=== PATIENT | male | born 1980 | race Caucasian/White ===

== ENCOUNTER 2017-10-21 10:18 | Emergency (ER) | payer OTHER ==
[2017-10-21 10:39] VITALS: BP 132/74; BMI 39.5
--- NOTE | 2017-10-21 10:45 | DR.LACERAT ---
HPI - Time Seen Time seen: 10:50 - Primary Care Physician Primary Care Physician: SHEILA BALLESTEROS - HPI Comment HPI Comment: PATIENT CUT MIDDLE JOINTS ON 2ND, 3RD AND 4TH FINGERS ON RT AND ABRASION ON 2ND FINGER ON LT HAND. CUT IT ON SOFA. TD NOT UTD. - Complaints Chief Complaint Doctors Comments: FINGER LACERATION Chief Complaint:: PT C/O THROWING OUT A OLD SOFA AND CUTTING HIS RIGHT MIDDLE FINGER AND SOME SMALL ABRASIONS NOTED TO PTS OTHER FINGERS,,, Self Treatment fo Chief Complaint: PRESSURE BEING HELD, BLEEDING CONTROLLED - Reviewed Nurses Notes Reviewed: Yes - Source History Provided: Patient - Mode of Arrival Mode of Arrival: Ambulatory - Timing Onset of Chief Complaint: 10/20/17 - Context Mechanism: Metal Tetanus Vaccination: No - Severity Pain Severity: Moderate Bleeding:: Controlled - Associated Signs and Symptoms Associated Signs and Symptoms: None PMH - PMH Past Medical History: No Past Surgical History: Yes Past Surgical History Comment: FEET, - Family History History of Family Medical Conditions: No - Social History Does patient currently use any type of tobacco product: No Type of Tobacco Use: None Does any household member use tobacco: No Alcohol Use: None Do you use any recreational Drugs:: No Lives With: Family Lives Where: Home - infectious screening In the last 2 months have you had wt loss of >10#?: NO Have you had fever, night sweats or hemotysis?: No Have you traveled outside the country in the last 6 months?: No Isolation: Standard ROS - Review of Systems Constitutional: No Symptoms Reported Eyes: No Symptoms Reported ENTM: No Symptoms Reported Respiratoy: No Symptoms Reported Cardiovascular: No Symptoms Reported Gastrointestinal/Abdominal: No Symptoms Reported Genitourinary: No Symptoms Reported Neurological: No Symptoms Reported Musculoskeletal: No Symptoms Reported Integumentary: Wound (LAC PIP JOINT POSTERIOR ASPECT 2ND, 3RD AND 4TH FINGERS.) , Other (ABRASION LT HAND.) Hematologic/Lymphatic: No Symptoms Reported Endocrine: No Symptoms Reported All Other Systems: Reviewed and Negative PE - Vital Signs Vitals: Temperature 96.7 F Pulse Rate 84 Respiratory Rate 18 Blood Pressure 132/74 O2 Sat by Pulse Oximetry 95 - General Limitations: No Limitations General Appearance: Alert - Head Head Exam: Normal Inspection - Eyes Eye exam: Normal Appearance - ENT ENT Exam: Normal External Ear Exam - Neck Neck Exam: Normal Inspection - Chest Chest Inspection: Symmetric Chest Wall Rise - Respiratory Respiratory Exam: Normal Lung Sounds Bilat Respiratory Exam: Bilateral Clear to Auscultation - Cardiovascular Cardiovascular Exam: Regular Rate, Normal Rhythm, Normal Heart Sounds - Abdominal Exam Abdominal Exam: Normal Bowel Sounds, Soft. negative: Tenderness - Extremities Extremities Exam: Tenderness (LAC FINGERS RT HAND) - Back Back Exam: Normal Inspection - Neurologic Neurological Exam: Alert, Oriented X3 - Psychiatric Psychiatric Exam: Normal Affect, Normal Mood - Skin Skin Exam: Erythema Type of Lesion: Laceration (RT PIP JOINTS 1CM 2ND FINGER, 3CM 3RD FINGER AND 2CM 4TH FINGER.), Abrasion Distribution: LUE, RUE [facility] - Differential Diagnosis Differential Diagnosis: Abrasion, Laceration Course - Treatment Treatment: SEE ORDERS. - Education/Counseling Education/Counseling: Patient, Education Educated On: Diagnosis, Needs for Follow Up Procedures - Laceration/Wound Repair Right Hand Wound Length (cm): 3 (ALSO 1 AND 2 CM) Wound's Depth, Shape: Linear Wound Explored: clean Anesthesia: 1% Lidocaine Volume Anesthetic (ccs): 5 Wound Debrided: minimal Wound Repaired With: sutures Suture Size/Type: 4:0, Ethilion Number of Sutures: 13 Layer Closure?: No Sterile Dressing Applied?: Yes Splint Applied?: No Sling Applied?: No - Diagnosis Discharge Problem: Finger laceration Qualifiers: Encounter type: initial encounter Finger: middle finger Damage to nail status: without damage Foreign body presence: without foreign body Laterality: right Qualified Code(s): S61.212A - Laceration without foreign body of right middle finger without damage to nail, initial encounter Abrasion of finger of left hand Qualifiers: Encounter type: initial encounter Qualified Code(s): S60.419A - Abrasion of unspecified finger, initial encounter - Discharge Plan Disposition: HOME, SELF-CARE Condition: Stable Prescriptions: Cephalexin [KEFLEX CAP 500 MG *] 500 mg PO TID #21 cap Ibuprofen [MOTRIN TAB 800 MG *] 800 mg PO Q8H PRN #20 tab PRN Reason: Pain/Inflammation Tramadol HCl 50 mg PO Q8H #15 tablet - Follow ups/Referrals Follow ups/Referrals: FAVIAN GARCIA [Primary Care Provider] - 3 days - Instructions Instructions: Laceration Care, Adult, [id number] Additional Instructions: SUTURE OUT IN 10 DAYS. RETURN TO ED IF WORSE.
[2017-10-21] MEDS ORDERED: XYLOCAINE 1 % (PLAIN) ONE (10:51)
[2017-10-21] MEDS ORDERED: ADACEL TDaP IM ONE ×2 (10:52→10:59)
== END 2017-10-21 11:37 | disposition home or self-care (01) ==
LOC: ER 10:38
PROC: 0XQJXZZ Repair Right Hand, External Approach (ICD-10-PCS; principal; 2017-10-21)
DX: S61.212A Laceration without foreign body of right middle finger without damage to nail, initial encounter (principal); S60.419A Abrasion of unspecified finger, initial encounter; W45.8XXA Other foreign body or object entering through skin, initial encounter; Y92.9 Unspecified place or not applicable
CPT/HCPCS: 12002; 90471; 99282; J2001

== ENCOUNTER 2017-11-05 09:52 | Emergency (ER) | payer OTHER ==
[2017-11-05 09:53] VITALS: BP 132/74
[2017-11-05 09:56] VITALS: BMI 39.5
--- NOTE | 2017-11-05 10:28 | DR.GENAD ---
HPI - PCP Primary Care Physician: JOSE - HPI Comment HPI Comment: GETTING WORSE. REPORTS GREEN SPUTUM. NASAL SECREATION ALSO GREEN. - Complaint/Symptoms Chief Complaint Doctors Comments: COUGH, COLD, CONGESTION AND FEVER TIMES 4 DAYS. Chief Complaint:: PT C/O CHEST CONGESTION, CHEST PAIN FROM COUGHING, COUGHING UP THICK GREEN SPUTUM. PT STATES HE HAS BEEN RUNNING FEVER ALSO. PT STATES HIS SYMPTOMS HAS BEEN GOING ON SINCE MONDAY. - Nurses notes reviewed Nurses Notes Review: Yes - Source History Provided: Patient - Mode of Arrival Mode of Arrival: Ambulatory - Timing Onset of Chief Complaint: 11/01/17 Came on: Suddenly - Duration Duration: Constant Duration: Days - Severity Severity: Moderate PMH - PMH Past Medical History: No Past Surgical History: Yes Past Surgical History Comment: FOOT SURGERY - Family History History of Family Medical Conditions: No - Social History Does any household member use tobacco: No Alcohol Use: None Do you use any recreational Drugs:: No Lives With: Family Lives Where: Home - infectious screening In the last 2 months have you had wt loss of >10#?: NO Have you had fever, night sweats or hemotysis?: No Have you traveled outside the country in the last 6 months?: No Isolation: Standard ROS - Review of Systems Constitutional: No Symptoms Reported Eyes: No Symptoms Reported ENTM: Nose Congestion, Throat Pain. negative: Ear Pain, Ear Discharge Respiratoy: Productive Cough, Short of Breath. negative: Wheezing, Hemoptysis Cardiovascular: Chest Pain Gastrointestinal/Abdominal: Nausea Genitourinary: negative: Dysuria, Frequency, Hematuria Neurological: Headache, Weakness, Dizziness Musculoskeletal: Muscle Pain Integumentary: No Symptoms Reported Hematologic/Lymphatic: No Symptoms Reported Endocrine: No Symptoms Reported All Other Systems: Reviewed and Negative PE - Vital Signs Vitals: Temperature 97.5 F Pulse Rate 71 Respiratory Rate 20 Blood Pressure 132/74 O2 Sat by Pulse Oximetry 96 - General Limitations: No Limitations General Appearance: Alert - Head Head Exam: Normal Inspection - Eyes Eye exam: Normal Appearance - ENT ENT Exam: Normal External Ear Exam External Ear Exam: Normal External Inspection TM/Canal Exam: Bilateral Bulging Nose Exam: Normal Nose Exam Mouth Exam: Normal Inspection Throat Exam: Tonsillar Erythema. negative: Tonsillomegaly, Tonsillar Exudate - Neck Neck Exam: Trachea Midline. negative: Tenderness, Meningismus, Lymphadenopathy - Chest Chest Inspection: Normal Inspection, Symmetric Chest Wall Rise - Respiratory Respiratory Exam: Normal Lung Sounds Bilat, Chest Wall Tenderness Respiratory Exam: Bilateral Rhonchi, Lower Crackles - Cardiovascular Cardiovascular Exam: Regular Rate, Normal Rhythm - Abdominal Exam Abdominal Exam: Normal Bowel Sounds, Soft - Extremities Extremities Exam: Normal Inspection - Back Back Exam: Normal Inspection - Neurologic Neurological Exam: Alert, Oriented X3 - Psychiatric Psychiatric Exam: Normal Affect, Normal Mood - Skin Skin Exam: Normal Color MDM - Differential Diagnosis Differential Diagnosis: INFLUENZA, BRONCHITIS, PNEUMONIA, SORE THROAT, SINUSITIS Course - Treatment Treatment: SEE ORDERS. - Education/Counseling Education/Counseling: Patient, Education Educated On: Diagnosis, Needs for Follow Up ROR - Labs Reviewed Laboratory Results Reviewed?: Yes Laboratory: Influenza Type A (PCR) Negative (NEGATIVE) 11/05/17 10:31 Influenza Type B (PCR) Positive (NEGATIVE) A 11/05/17 10:31 S. pyogenes (TEM-PCR) Not detected (NOT DETECT) 11/05/17 10:31 - XRAY XRAY Interpreted by: Radiologist XRAY Findings: REPORT DISCUSS WITH PATIENT. - Diagnosis Discharge Problem: Influenza Acute bronchitis Qualifiers: Bronchitis organism: unspecified organism Qualified Code(s): J20.9 - Acute bronchitis, unspecified Sinusitis Qualifiers: Sinusitis location: unspecified location Chronicity: acute Recurrence: not specified as recurrent Qualified Code(s): J01.90 - Acute sinusitis, unspecified - Discharge Plan Disposition: 01 HOME, SELF-CARE Condition: Stable Prescriptions: Amoxicillin [Amoxil 875 mg] 875 mg PO Q12H #20 tab Oseltamivir Phosphate [Tamiflu] 75 mg PO BID #10 cap Promethazine W/Codeine [PHENERGAN W/CODEINE 6.25mg/10mg (5mL) *] 10 ml PO Q6H PRN #120 ml PRN Reason: Cough - Follow ups/Referrals Follow ups/Referrals: FAVIAN GARCIA [Primary Care Provider] - 3 days - Instructions Instructions: Influenza, Adult, [id number], Sinusitis, Adult, [id number]-[id number], Acute Bronchitis, [id number] Additional Instructions: return to ed if worse.
--- NOTE | 2017-11-05 13:39 | RAD ---
Examination: Chest, PA and lateral views History: SOB Findings: Normal heart size with essentially clear lungs and pleural spaces. Pulmonary volumes are lo w, possibly related to patient habitus. There is no evidence for hilar enlargement or pleural effusio n. Impression: No acute or significant chest findings. Reported By:
== END 2017-11-05 12:05 | disposition home or self-care (01) ==
LOC: ER 09:57
DX: J20.9 Acute bronchitis, unspecified (principal); J10.1 Influenza due to other identified influenza virus with other respiratory manifestations; J01.80 Other acute sinusitis
CPT/HCPCS: 71046; 87502; 87651; 99282

== ENCOUNTER → 2018-02-01 | Outpatient (CLI) | payer OTHER ==
--- NOTE | 2018-02-01 12:31 | RAD ---
Indication: Cough Exam: PA and lateral Comparison: 11/05/2017 Findings: The heart is normal. The pulmonary vessels are normal. The lungs are hypoinflated. No obvio us consolidation or effusion is seen. The bones are intact. Impression: Stable chest with no acute abnormality seen. Reported By:
== END ==
LOC: RAD 12:05
PROVIDERS: ATTEND Internal Medicine
DX: R07.9 Chest pain, unspecified (principal)
CPT/HCPCS: 71046

== ENCOUNTER 2022-02-03 16:45 | Observation (INO) ==
[2022-02-03] MEDS ORDERED: OFIRMEV IV 1000 MG VIAL 1,000 MG/100 ML VIAL IV PRN (17:45)
[2022-02-03] MEDS ORDERED: ZOFRAN INJ 4 MG VIAL IVP PRN (17:46)
[2022-02-03] MEDS ORDERED: MORPHINE SULFATE INJ 2 MG INJ IVP PRN (17:46)
--- NOTE | 2022-02-03 17:53 | DR.H&P ---
H&P - History & Physical for Day of: H&P Date: 02/03/22 - Chief Complaint Chief Complaint: ABDOMINAL PAIN, FEVER - History of Present Illness History of Present Illness: PT IS 41 WM DIRECT ADMIT FROM DR MENDIOLA OFFICE WITH CO FEVER AND ABDOMINAL PAIN ONSET 2 DAYS AGO. PT REPORTS GRADUALLY WORSENED WITH BLOOD IN HIS URINE. PT NAUSEA AND VOMITING. PT CO SEVERE NAUSEA WITH HE STANDS OR MOVES. PT DENIES ANY CONSITPATION OR DIARRHEA. PT HAD UA IN OFFICE WITH LARGE BLOOD, + LARGE LEUKOCYTES AND NITRITE. PT HAD 2 NEGATIVE RAPID COVID TESTS AND DENIES ANY UPPER RESPIRATORY SYMPTOMS. PT HAS PMH OF HTN, CONTROLLED ON CURRENT MEDICATION. PT ADMITTED FOR TREATMENT OF ACUTE ILLNESSE, RO ACUTE SURGICAL ABDOMEN. - Past Medical History Past Medical History: Hypertension - Social History Does patient currently use any type of tobacco product: No Have you used tobacco products in the last 12 months: No Type of Tobacco Use: None Does any household member use tobacco: No Alcohol Use: None Drug Use: None Risks, benefits, and alternatives of opioids discussed: No - Medications Home Medications: No Known Drug Allergies Allergy (Verified 10/21/17 10:22) - Review of Systems Constitutional: Fever, Chills, Sweats, Weakness, Malaise Eyes: No Symptoms Reported ENT: No Symptoms Reported Respiratory: No Symptoms Reported Cardiovascular: No Symptoms Reported Gastrointestinal: Nausea, Vomiting, Abdominal Pain Genitourinary: Hematuria Musculoskeletal: No Symptoms Reported Skin: No Symptoms Reported Neurological: No Symptoms Reported - Physical Exam Vital Signs: Blood Pressure 132/74 Oriented: Normal Eyes: Normal Ear: Normal Nose: Normal Throat: Normal Respiratory: RLL Diminished, LLL Diminished Cardiovascular: Tachycardia : Normal Auscultation: Bowel Sounds: Decreased Tenderness: LLQ, Periumbilical, Suprapubic, Severe Skin: Decreased Turgur Musculoskeletal: Back:Lumbar Psychiatric: Normal Mood Description: Calm Speech Pattern: Clear, Appropriate - Assessment/Plan (1) UTI (urinary tract infection) Status: Acute Plan: ADMIT, BLOOD AND URINE CULTURE. IV HYDRATION, I&OS. NPO. PAIN AND NAUSEA CONTROL. IV ATBX THERAPY, BP CONTROL. CT ABD/PELVIS WITH CONTRAST. SURGICAL CONSULT PRN (2) Acute generalized abdominal pain with fever Status: Acute (3) Fever Status: Acute (4) Dehydration Status: Acute (5) Hematuria Status: Acute - Allergies Allergies/Adverse Reactions: Allergies Allergy/AdvReac Type Severity Reaction Status Date / Time No Known Drug Allergies Allergy Verified 10/21/17 10:22
[2022-02-03 18:13] LABS: BASOPHILS % (AUTO) 0.4 % (0.2-1.0); EOSINOPHILS # (AUTO) 0.1 x10^3/uL (0.0-0.2); EOSINOPHILS % (AUTO) 2.9 % (0.9-2.9); HEMATOCRIT 43.5 % (42.0-54.0); HEMOGLOBIN 15.2 g/dL (13.5-18.0); LYMPHOCYTES % (AUTO) 20.8 % (21.0-51.0); MEAN CORPUSCULAR HEMOGLOBIN 30.9 pg (27.0-34.0); MEAN CORPUSCULAR VOLUME 88.5 fL (80.0-100.0); MEAN PLATELET VOLUME 8.3 fL (7.4-11.0); MONOCYTES # (AUTO) 0.5 x10^3/uL (0.3-0.8); MONOCYTES % (AUTO) 10.4 % (0.0-13.0); NEUTROPHILS % (AUTO) 65.5 % (42.0-75.0); RED BLOOD COUNT 4.91 X10^6/uL (4.7-6.0); RED CELL DISTRIBUTION WIDTH 13.5 % (11.6-16.5); WHITE BLOOD COUNT 4.6 X10^3/uL (3.6-10.0)
[2022-02-03 18:24] LABS: ALANINE AMINOTRANSFERASE 48 Units/L (12-78); ALBUMIN 3.6 g/dL (3.4-5.0); ALKALINE PHOSPHATASE 73 Units/L (46-116); ASPARTATE AMINO TRANSFERASE 27 Units/L (15-37); BLOOD UREA NITROGEN 15 mg/dL (7-18); CALCIUM 8.8 mg/dL (8.5-10.1); CHLORIDE 103 mmol/L (98-107); CREATININE 1.15 mg/dL (0.70-1.30); SODIUM 137 mmol/L (136-145); TOTAL PROTEIN 7.4 g/dL (6.4-8.2); eGFR NON BLACK RACES > 60 (>60)
[2022-02-03] MEDS: PROTONIX INJ 40 MG VIAL IVP SCH (18:45)
[2022-02-03] MEDS: NS 1,000 ML IV 1,000 ML IV SCH (18:45)
[2022-02-03 19:06] LABS: BILIRUBIN,URINE NEGATIVE (NEGATIVE); BLOOD/HEMOGLOBIN,URINE 2+ (NEGATIVE); GLUCOSE, URINE NEGATIVE (NEGATIVE); KETONES,URINE NEGATIVE (NEGATIVE); LEUKOCYTE ESTERASE ,URINE 3+ (NEGATIVE); NITRITES,URINE POSITIVE (NEGATIVE); PROTEIN,URINE 2+ (NEGATIVE); UROBILINOGEN,URINE NORMAL (NORMAL)
[2022-02-03 19:32] LABS: APPEARANCE,URINE CLOUDY (CLEAR); BACTERIA,URINE 2+ /HPF (NEGATIVE); COLOR,URINE YELLOW (YELLOW); SQUAMOUS EPITHELIAL CELL,UR FEW /HPF (NEGATIVE)
[2022-02-03] MEDS: ZOSYN VIAL 3.375 GRAMS 3.375 G in NS 100 ML IV 100 ML IV SCH (21:55)
[2022-02-04] MEDS: NS 1,000 ML IV 1,000 ML IV SCH ×3 (02:57→11:31)
[2022-02-04 05:58] LABS: BASOPHILS % (AUTO) 0.5 % (0.2-1.0); EOSINOPHILS # (AUTO) 0.2 x10^3/uL (0.0-0.2); EOSINOPHILS % (AUTO) 4.6 % (0.9-2.9); HEMOGLOBIN 13.4 g/dL (13.5-18.0); LYMPHOCYTES # (AUTO) 1.4 X10^3/uL (1.3-2.9); LYMPHOCYTES % (AUTO) 30.1 % (21.0-51.0); MEAN CORPUSCULAR HEMOGLOBIN 30.2 pg (27.0-34.0); MEAN CORPUSCULAR HGB CONC 34.4 g/dL (33.0-35.0); MEAN CORPUSCULAR VOLUME 87.9 fL (80.0-100.0); MEAN PLATELET VOLUME 8.2 fL (7.4-11.0); MONOCYTES # (AUTO) 0.7 x10^3/uL (0.3-0.8); NEUTROPHILS # (AUTO) 2.3 x10^3/uL (2.2-4.8); NEUTROPHILS % (AUTO) 49.8 % (42.0-75.0); RED BLOOD COUNT 4.44 X10^6/uL (4.7-6.0); RED CELL DISTRIBUTION WIDTH 13.6 % (11.6-16.5); WHITE BLOOD COUNT 4.6 X10^3/uL (3.6-10.0)
[2022-02-04] MEDS: ZOSYN VIAL 3.375 GRAMS 3.375 G in NS 100 ML IV 100 ML IV SCH (06:16)
[2022-02-04 06:17] LABS: ALANINE AMINOTRANSFERASE 37 Units/L (12-78); ALBUMIN 3.1 g/dL (3.4-5.0); ALKALINE PHOSPHATASE 63 Units/L (46-116); ASPARTATE AMINO TRANSFERASE 21 Units/L (15-37); BLOOD UREA NITROGEN 14 mg/dL (7-18); CALCIUM 8.6 mg/dL (8.5-10.1); CARBON DIOXIDE 26.2 mmol/L (21-32); CHLORIDE 106 mmol/L (98-107); COR CA(FOR HYPOALB) 9.3 mg/dL (8.5-10.1); CREATININE 1.11 mg/dL (0.70-1.30); SODIUM 139 mmol/L (136-145); TOTAL PROTEIN 6.5 g/dL (6.4-8.2); eGFR NON BLACK RACES > 60 (>60)
[2022-02-04] MEDS ORDERED: LR 1,000 ML IV 0 ML IV ONE (07:13)
[2022-02-04 07:33] VITALS: BMI 39.0
[2022-02-04 07:58] VITALS: BP 133/76
--- NOTE | 2022-02-04 08:24 | CT ---
HISTORYFEVER, LOWER ABD PAINSTUDYABDOMEN/PELVIS W/O CONCOMPARISONNone availableTECHNIQUEAxial images through the abdomen and pelvis was performed without contrast. CT scan was performed following ALARA (As low as Reasonably Achievable).Coronal and Sagittal reformatted images were performed.FINDINGSThe lung bases are clear. The liver demonstrate no focal lesions for noncontrast CT.. The spleen measures in length approximately 11.8 centimetersNo gallstones. The pancreas is unremarkable for noncontrast CT. No intra or extrahepatic biliary dilatation. The stomach is not distended.No adrenal masses. There are bilateral normal-sized kidneys without hydronephrosis, no evidence of renal calculus or obstructive ureteral stones.No ventral hernias. No abnormal dilated small bowel loops. No colitis, the terminal ileum is unremarkable. There is no evidence of appendicitis.Pelvis: The prostate is prominent, no free fluid in the cul de sac. Increase stool in the rectosigmoid colon. No pelvic adenopathy. Urinary bladder it partially decompressed with nonspecific mild thickening of the wall.Bone windows no evidence of aggressive bone lesions. No acute fractures.IMPRESSIONNo acute intra-abdominal abnormalities.Electronically signed by: Bridgett Ramirez (February 04, 2022 08:23:01)
[2022-02-04] MEDS ORDERED: TORADOL 30 MG VIAL IVP ONE (08:32)
[2022-02-04] MEDS ORDERED: NS 1,000 ML IV 1,000 ML IV ONE (08:32)
[2022-02-04] MEDS ORDERED: TORADOL 30 MG VIAL ONE (08:33)
[2022-02-04] MEDS: PROTONIX INJ 40 MG VIAL IVP SCH (08:40)
[2022-02-04] MEDS ORDERED: NORCO 5/325 MG TAB PO ONE (12:33)
[2022-02-04] MEDS ORDERED: NORCO 5/325 MG TAB ONE (12:35)
--- NOTE | 2022-02-04 14:41 | PCM.DCPLAN ---
Discharge Plan - Discharge Plan Disposition: HOME, SELF-CARE Condition: Stable Health Concerns: Post Hospitalization: new medications and changes needed to prevent readmission or further decline. Pt educated and given instructions on all concerns. Care Plan Goals: Problem: Infection Goal: Temperature within normal limits. Resolved infection. Instructions: Follow provided instructions. Follow up with primary physician as directed. Contact primary care physician or report to the closest Emergency Room if condition worsens. Plan of Treatment: Continue with present treatment and follow up plan. Pt is to keep follow up appointment as instructed and take medications as ordered. Assessment: No acute distress noted at discharge. Prescriptions: New ciprofloxacin HCl [Cipro] 500 mg Tablet 500 mg PO Q12H Qty: 20 RF: 0 Transmission Status: Received by [facility] No Action NK - Orders to Discharge Patient Discharge Orders: Discharge (Routine); Ordered 02/04/22 Ordered By: FAVIAN GARCIA - Follow ups/Referrals Follow ups/Referrals: MELONIE WEST [Primary Care Provider] - 02/10/22 3:30 pm - Instructions Instructions: Soft-Food Eating Plan, Flank Pain, Adult, Xhdk-ht-Dupy, Abdominal Pain, Adult, Vsyc-so-Rvmj, Rehydration, Adult, Urinary Tract Infection, Adult, Fzkg-yl-Eojf, Fever, Adult, [id number]-qq-[id number] Additional Instructions: PUSH FLUIDS SOFT DIET REST MAY RETURN TO WORK ON MONDAY IF RESOLVED AVOID EXCESSIVE HEAT Forms: Excuse From Work or School, Precautions for COVID19, [facility], Patient Portal, Social Distancing Print Language: SWAZI - Patient Education Addl Reference Links: Abdominal Pain, Adult [email or web address]
== END 2022-02-04 12:38 | disposition home or self-care (01) ==
LOC: MED/SURG
PROVIDERS: ADMIT Internal Medicine; ATTEND Internal Medicine
DX: R10.84 Generalized abdominal pain; B96.29 Other Escherichia coli [E. coli] as the cause of diseases classified elsewhere; I10 Essential (primary) hypertension; N30.01 Acute cystitis with hematuria; Z20.822 Contact with and (suspected) exposure to COVID-19; E86.0 Dehydration